=== PATIENT | male | born 1965 | race Caucasian/White ===

== ENCOUNTER 2016-11-26 05:43 | Day surgery (SDC) | payer OTHER ==
[2016-11-25 15:38] VITALS: BMI 23.1
[~2016-11-26] VITALS: Ht 162.6 cm; Wt 57.6 kg
[2016-11-26] VITALS (13 sets, daily range): BP systolic 113–150; BP diastolic 65–89; PULSE 86–114; RESP 11–20; Ht 162.6 cm; Wt 57.6 kg
[2016-11-26] MEDS ORDERED: POLYMYXIN/BACITRACIN 1L IRRIG ONE (06:51)
[2016-11-26] MEDS ORDERED: CEFAZOLIN 1 GM INJ ONE (07:00)
[2016-11-26] MEDS ORDERED: MIDAZOLAM 1 MG/ML 2 ML INJ ONE (07:28)
[2016-11-26] MEDS ORDERED: ROPIVACAINE 0.5 % 30 ML VIAL ONE (07:28)
[2016-11-26] MEDS ORDERED: ROCURONIUM 50 MG INJ ONE (07:46)
[2016-11-26] MEDS ORDERED: PROPOFOL 20 ML ONE ×2 (07:46→09:01)
[2016-11-26] MEDS ORDERED: METOCLOPRAMIDE 10 MG INJ ONE (07:46)
[2016-11-26] MEDS ORDERED: ONDANSETRON 4 MG INJ ONE (07:46)
[2016-11-26] MEDS ORDERED: HYDROmorphONE 2 MG/ML SYG ONE (08:00)
[2016-11-26] MEDS ORDERED: PHENYLephrine (100 MCG/ML) 5ML SYG ONE (08:11)
[2016-11-26] MEDS ORDERED: EPHEDrine SULFATE 50 MG/5 ML SYG ONE (09:01)
[2016-11-26] MEDS ORDERED: KETOROLAC 30 MG INJ ONE (10:17)
[2016-11-26] MEDS ORDERED: FENTAnyl 50 MCG/ML VIAL IV PRN ×2 (10:30)
[2016-11-26] MEDS ORDERED: OXYCODONE/ACETAMINOPHEN (5/325) TAB PO PRN ×2 (10:30)
[2016-11-26] MEDS ORDERED: DIPHENHYDRAMINE 50 MG INJ IV PRN (10:30)
[2016-11-26] MEDS ORDERED: ONDANSETRON 4 MG INJ IV PRN (10:30)
[2016-11-26] MEDS ORDERED: METOCLOPRAMIDE 10 MG INJ IV PRN (10:30)
[2016-11-26] MEDS ORDERED: HYDROmorphONE (0.2 MG/ML) 10ML SYG IV PRN ×3 (10:30)
[2016-11-26] MEDS ORDERED: MEPERIDINE 25 MG INJ IV PRN (10:30)
[2016-11-26] MEDS ORDERED: POVIDONE IODINE 10% 28.4 GM OINT ONE (10:48)
[2016-11-26] MEDS ORDERED: FENTAnyl 50 MCG/ML VIAL ONE (10:49)
--- NOTE | 2016-11-26 11:24 | RADRPT ---
PROCEDURE: Intraoperative imaging of the right calcaneus with fluoroscopy. CLINICAL INDICATION: Right heel pain. Intraoperative. TECHNIQUE: 6 images of the right calcaneus were obtained in the operating room with an image inten sifier. No radiologist was in attendance. 47.6 seconds of fluoroscopy time was used. COMPARISON: No prior study is available for comparison. FINDINGS: Images demonstrate placement of a plate and multiple screws transfixing the calcaneus. IMPRESSION: 1. Intraoperative imaging of the right calcaneus. RPTAT: QQ .Pedro Pablo Sánchez MD, MD Date Time Electronically viewed and signed by .Pedro Pablo Sánchez MD, on 11/26/2016 11:24 .R/
--- NOTE | 2016-11-26 11:27 | QN ---
Documentation Job number: [id number] Comment DARIO Munoz ERIC I. MD Nov 26, 2016 11:27
[2016-11-26] MEDS ORDERED: morphine 2 MG INJ IV PRN (11:30)
[2016-11-26] MEDS ORDERED: morphine 10 MG INJ IV PRN (11:30)
[2016-11-26] MEDS: FENTAnyl 50 MCG/ML VIAL IV PRN ×2 (11:42→11:47)
--- NOTE | 2016-11-26 12:02 | OPR ---
DATE OF OPERATION: 11/26/2016 SURGEON: Ned Roth M.D. DIFFERENTIAL SPECIALIST: DARIO OSORIO PROCEDURE: Right calcaneus open reduction internal fixation. PREOPERATIVE DIAGNOSIS: Right calcaneus Tompkins type IIA fracture. POSTOPERATIVE DIAGNOSES: Right calcaneus Tompkins type IIA intra-articular fracture. ANESTHESIA: GENERAL WITH POPLITEAL BLOCK IMPLANTS: OrthoHelix Wave plate CLX with appropriate screws. TOURNIQUET TIME: 130 minutes at 250 mmHg. PATHOLOGY: None. COMPLICATIONS: None. INDICATIONS: The patient is a 50-year-old gentleman who fell 2+ stories from a standing high while at work, sustaining a calcaneus fracture. The patient had a CT scan which confirmed the injury and required surgical fixation. The patient was explained the risks and benefits of the surgery in the patient's [place] language including, but not limited to infection, bleeding, loss of limb , loss of life, wound infection, DVT, PE and . The patient acknowledged these surgical risks by signing the surgical consent form. DESCRIPTION OF PROCEDURE: The patient was met in the preoperative holding area and the correct operative site was marked and confirmed with both patient and consent. The patient was given regional block popliteal block anesthesia and then brought back to the operative theater, given preoperative antibiotics. The patient was then placed in a slight lateral position with all bony prominences well padded. The patient was then prepped and draped in the normal sterile fashion. Time-out was taken and all parties in the room agreed it was the correct patient, extremity and procedure. Incision was made in the sinus tarsi lateral approach with care to avoid any injury to the neurovascular structures. The peroneal tendons were retracted inferiorly while the calcaneus was approached. The fracture was identified and reduced and elevated appropriately, especially on the posterior facet where there was some loss of height. Once the height was restored, the [facility] OrthoHelix Wave plate was then placed across the fracture site and fixated initially beginning at the anterior process and then going posterior to the posterior facet and then a small shelly incision was made to find the most posterior screw site, along the hind foot screw hole which was then found and then under locking fixation fixated posteriorly. All wounds were irrigated thoroughly and closed in layers with 0 Vicryl, 2-0 Vicryl, 3-0 Monocryl and then 3-0 nylon in vertical mattress fashion. The wounds were then dressed with Xeroform, Betadine ointment and patient was placed in a well-padded short leg splint with 5 ABDs. All sponge and needle counts were correct. Dictated By: NED WHITTAKER/NTS Conf#: [id number] DID#: [id number]
== END 2016-11-26 13:00 | disposition home or self-care (01) ==
LOC: REC 05:43 → UNDOADMIN 05:43 → SDS 05:43 → EDSTATUS 07:30 → SDS 13:00
PROVIDERS: ATTEND Orthopaedic Surgery
DX: S92.061A Displaced intraarticular fracture of right calcaneus, initial encounter for closed fracture (principal); Z87.891 Personal history of nicotine dependence; X58.XXXA Exposure to other specified factors, initial encounter; Y99.8 Other external cause status; Y92.89 Other specified places as the place of occurrence of the external cause
CPT/HCPCS: 73650; J0690; J1170; J1885; J2250; J2270; J2370; J2405; J2765; J2795; J3010